=== PATIENT | male | born 1965 | race African-American/Black ===

== ENCOUNTER 2017-01-13 21:38 | Emergency (ER) | payer BC ==
[~2017-01-13] VITALS: Ht 172.7 cm; Wt 90.7 kg
[2017-01-13 22:14] VITALS: BP 158/98
--- NOTE | 2017-01-13 22:21 | NUR ---
Patient going to CT via wheelchair per tech.
--- NOTE | 2017-01-13 22:34 | NUR ---
Berkley solano in [facility] - 01/13/17 at 2237 by SHARON Patient to bed 04.
--- NOTE | 2017-01-13 22:37 | NUR ---
Patient to bed [address] via wheelchair per tech.
[2017-01-13] MEDS ORDERED: HYDROcodone/APAP 5/325 MG 1 TAB TAB PO ONE (22:45)
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
[2017-01-14] VITALS: BP 178/95
--- NOTE | 2017-01-14 | NUR ---
Patient discharged with v/s stable. Written and verbal after care instructions given and explained. Patient alert, oriented and verbalized understanding of instructions. Ambulatory with steady gait. All questions addressed prior to discharge. ID band removed. Patient advised to follow up with PMD. Rx of NORCO5/325MG, NAPROSYN 500 MG given. Patient educated on indication of medication including possible reaction and side effects. Opportunity to ask questions provided and answered.
== END 2017-01-14 | disposition home or self-care (01) ==
LOC: MED 21:38
DX: S00.12XA Contusion of left eyelid and periocular area, initial encounter (principal); I10 Essential (primary) hypertension; Z88.0 Allergy status to penicillin; Y08.89XA Assault by other specified means, initial encounter; Y93.89 Activity, other specified; Y92.89 Other specified places as the place of occurrence of the external cause; Y99.8 Other external cause status

== ENCOUNTER 2018-03-07 20:58 | Emergency (ER) | payer BC ==
[~2018-03-07] VITALS: Ht 175.3 cm; Wt 107.2 kg
[2018-03-07 21:02] VITALS: BP 157/85
--- NOTE | 2018-03-07 21:07 | NUR ---
PT. AMBULATED TO ER BED 7
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
[2018-03-07 22:10] VITALS: BP 155/80
== END 2018-03-07 22:10 | disposition home or self-care (01) ==
LOC: MED 20:58
DX: S91.332A Puncture wound without foreign body, left foot, initial encounter (principal); I10 Essential (primary) hypertension; Z88.0 Allergy status to penicillin; W22.8XXA Striking against or struck by other objects, initial encounter; Y93.89 Activity, other specified; Y92.89 Other specified places as the place of occurrence of the external cause; Y99.8 Other external cause status
CPT/HCPCS: 90471; 90715; 99283

== ENCOUNTER 2018-05-16 21:38 | Emergency (ER) | payer MEDICAID ==
[~2018-05-16] VITALS: Ht 180.3 cm; Wt 99.8 kg
[2018-05-16 21:41] VITALS: BP 155/90
[2018-05-16 23:10] VITALS: BP 148/91
== END 2018-05-16 23:10 | disposition home or self-care (01) ==
LOC: MED 21:38
DX: J39.2 Other diseases of pharynx (principal); F10.99 Alcohol use, unspecified with unspecified alcohol-induced disorder; F12.90 Cannabis use, unspecified, uncomplicated; I10 Essential (primary) hypertension; Z88.0 Allergy status to penicillin
CPT/HCPCS: 70360; 99284

== ENCOUNTER 2018-07-13 09:46 | Emergency (ER) | payer MEDICAID ==
[~2018-07-13] VITALS: Ht 177.8 cm; Wt 98.0 kg
[2018-07-13 09:50] VITALS: BP 138/93
[2018-07-13 10:34] VITALS: BP 141/84
== END 2018-07-13 10:34 | disposition home or self-care (01) ==
LOC: MED 09:46
DX: B86 Scabies (principal); I10 Essential (primary) hypertension; Z88.0 Allergy status to penicillin
CPT/HCPCS: 99282

== ENCOUNTER 2021-11-13 21:52 | Emergency (ER) | payer MEDICAID, SELFPAY ==
[~2021-11-13] VITALS: Ht 176 cm; Wt 86.7 kg
[~2021-11-13 21:52] MED LIST: AMLO5TAB PO; ASPI-1822 PO; BENA40TA PO
[2021-11-13 22:55] VITALS: BP 152/90
--- NOTE | 2021-11-13 23:00 | NUR ---
PT IN LOBBY.
--- NOTE | 2021-11-13 23:15 | NUR ---
RAPID COVID COLEAMELIATED AND TAKEN TO LAB.
--- NOTE | 2021-11-14 00:20 | NUR ---
MURRAY RECOLLECTED AND TAKEN TO LAB.
[2021-11-14 01:58] VITALS: BP 152/90
--- NOTE | 2021-11-14 01:58 | NUR ---
Patient discharged with v/s stable. Written and verbal after care instructions given and explained. Patient verbalized understanding. Ambulatory with steady gait. All questions addressed prior to discharge. Advised to follow up with PMD.
== END 2021-11-14 01:58 | disposition home or self-care (01) ==
LOC: MED 21:52
DX: B34.9 Viral infection, unspecified (principal); Z20.822 Contact with and (suspected) exposure to COVID-19; I10 Essential (primary) hypertension; F17.210 Nicotine dependence, cigarettes, uncomplicated; F12.90 Cannabis use, unspecified, uncomplicated; Z88.0 Allergy status to penicillin; Z79.899 Other long term (current) drug therapy; Z79.82 Long term (current) use of aspirin; Z71.6 Tobacco abuse counseling
CPT/HCPCS: 99283